=== PATIENT | male | born 1975 | race African-American/Black ===

== ENCOUNTER 2017-10-02 08:03 | Observation (INO) ==
[2017-10-02] MEDS: NITROGLYCERIN 0.4 MG SL TAB (BOTTLE OF 3) SL PRN ×2 (08:16→08:27)
[2017-10-02] MEDS ORDERED: ASPIRIN 81 MG (BABY) CHEWABLE TABLET PO ONE (08:19)
[2017-10-02] MEDS ORDERED: Sodium Chloride 0.9% 1,000 ML PRIMARY IV ONE (08:19)
--- NOTE | 2017-10-02 08:19 | PDOC ---
Chest Pain HPI - General Chief Complaint: Chest Pain Stated Complaint: CHEST PAIN Date Seen by Provider: 10/02/17 Time Seen by Provider: 08:14 Source: Patient Exam Limitations: POSITIVE: No limitations Treatment Prior to Arrival: REPORTS: None Nurse's Notes Reviewed & Considered: Yes - History of Present Illness Initial Comments: This is a 42-year-old male who presents to the emergency department with history of acute onset of left substernal chest pain which began approximately an hour or so prior to arrival. No associated nausea or vomiting, no shortness of breath, no diaphoresis. He describes this as a burning pain does radiate somewhat towards his left shoulder. He says he has had episodes like this before, but not this intense. No fevers, chills, or bodyaches. No congestion, runny nose, or cough. He takes clonidine on intermittent basis, and has no specific primary care provider. - Patient Home Medications Home Medications: Home Medications Clonidine HCl 0.1 mg PO DAILY 10/02/17 Amlodipine Besylate [Norvasc] 10 mg PO DAILY #30 tab 10/03/17 - Patient Allergies Allergies/Adverse Reactions: Allergies 3 Allergy/AdvReac Type Severity Reaction Status Date / Time No Known Allergies Allergy Verified 10/03/17 06:22 Past Medical History Cardiovascular History: Hypertension Tobacco Use: Current Every Day Smoker ROS - Limitations ROS Limitations: No Limitations Constitution: DENIES: Chills, Fever Cardiovascular: REPORTS: Chest Pain. DENIES: Heart Palpitations Respiratory: DENIES: Shortness Of Breath Neurological: DENIES: Dizziness Gastrointestinal: DENIES: Abdominal Pain, Nausea, Vomitting Musculoskeletal: DENIES: Lower Extremity Swelling, Muscle Aches Genitourinary: REPORTS: Denies Symptoms ENT: DENIES: Congestion, Nasal Drainage Chest Pain PE - General Appearance General Appearance: REPORTS: Alert, Cooperative, Mild Distress - HEENT HEENT: POSITIVE: EOMI. NEGATIVE: Scleral Icterus - Respiratory Respiratory: REPORTS: No Respiratory Distress, Breath Sounds Normal, Chest Non- Tender - Cardiovascular Cardiovascular: REPORTS: Regular Rate and Rhythm, Heart Sounds Normal, No Murmur , No Gallop, No Friction Rub - Abdomen Additional Abdominal Details: Abdomen is soft, nontender, nondistended, no obvious organomegaly. - Skin Skin: REPORTS: Warm, Dry, No Rash - Extremities Additional Extremities Details: Trace edema bilaterally. - Neurological / Psychological Neurological: POSITIVE: Affect Apporpriate, Oriented X3 Chest Pain Progress - Results Reviewed by me CBC and BMP: 10/02/17 08:19 10/02/17 08:19 Lab Results:: Laboratory Results 3 10/02/17 10/02/17 10/02/17 02:25 08:19 08:19 WBC 8.10 RBC 5.77 Hgb 16.8 Hct 48.6 MCV 84.2 MCH 29.1 MCHC 34.6 RDW Std Deviation 42.9 RDW Coeff of Ari 13.9 Plt Count 236 MPV 10.1 Immature Gran % (Auto) 0.4 Neut % (Auto) 44.3 L Lymph % (Auto) 45.3 [place] % (Auto) 6.8 Eos % (Auto) 2.6 Baso % (Auto) 0.6 Immature Gran # (Auto) 0.03 Neut # (Auto) 3.59 Lymph # (Auto) 3.67 [place] # (Auto) 0.55 Eos # (Auto) 0.21 Baso # (Auto) 0.05 WBC Morphology Comment Normal morphology Plt Morphology Comment Normal morphology RBC Morph Comment Normal morphology PT 10.2 INR 0.96 D-Dimer 0.21 Sodium Potassium Chloride Carbon Dioxide Anion Gap BUN Creatinine Estimated GFR BUN/Creatinine Ratio Glucose Calculated Osmolality Calcium Total Bilirubin AST ALT Alkaline Phosphatase CK-MB (CK-2) Troponin I < 0.012 Total Protein Albumin Globulin Albumin/Globulin Ratio 3 10/02/17 10/02/17 08:19 08:19 WBC RBC Hgb Hct MCV MCH MCHC RDW Std Deviation RDW Coeff of Ari Plt Count MPV Immature Gran % (Auto) Neut % (Auto) Lymph % (Auto) [place] % (Auto) Eos % (Auto) Baso % (Auto) Immature Gran # (Auto) Neut # (Auto) Lymph # (Auto) [place] # (Auto) Eos # (Auto) Baso # (Auto) WBC Morphology Comment Plt Morphology Comment RBC Morph Comment PT INR D-Dimer Sodium 139 Potassium 3.9 Chloride 104 Carbon Dioxide 24 Anion Gap 11 BUN 12 Creatinine 1.1 Estimated GFR > 60 BUN/Creatinine Ratio 10.90 Glucose 88 Calculated Osmolality 286.0 Calcium 9.3 Total Bilirubin 0.8 AST 52 ALT 99 H Alkaline Phosphatase 101 CK-MB (CK-2) 1.00 Troponin I < 0.012 Total Protein 7.0 Albumin 4.1 Globulin 2.9 Albumin/Globulin Ratio 1.40 EKG Interpretation:: POSITIVE: Normal Sinus Rhythm, Normal Rate, Other ( Nonspecific T-wave flattening in his lateral leads) - Patient's Progress Pain Medication Addressed: POSITIVE: Yes Status: POSITIVE: Improved MDM / ED Course: Emergency room course: After initial evaluation, an IV was started, labs were drawn. He is given aspirin to chew and sublingual nitroglycerin which did help with his pain. He was initially started a nitro drip at 5 mics per minutes for both his chest pain as well as his blood pressure. At this point I'm going off shift, so I am handing patient off to Dr. Kitchen for follow-up on this his labs and subsequent disposition. Patient Care Time - Estimated PCT Patient Care Time (In Minutes): 15 Discharge Clinical Impression: Chest pain, Hypertension Condition: Stable
--- NOTE | 2017-10-02 08:23 | EKG ---
[address] [address] Measurements Intervals [place] Rate: 84 P: 40 WI: 132 QRS: -10 QRSD: 98 T: 5 QT: 374 QTc: 415 Interpretive Statements SINUS RHYTHM No previous ECG available for comparison Electronically Signed On 10-02-17 09:03:10 MDT by Gary Valdez [email or web address]
[2017-10-02 08:34] LABS: BASOPHILS # (AUTO) 0.05 10*3/UL; BASOPHILS % (AUTO) 0.6 % (0-1); EOSINOPHILS # (AUTO) 0.21 10*3/UL; EOSINOPHILS % (AUTO) 2.6 % (0-8); Hematocrit [HCT] 48.6 % (42.0-52.0); Hemoglobin [HGB] 16.8 g/dL (14.0-18.0); LYMPHOCYTES # (AUTO) 3.67 10*3/uL; MEAN CORPUSCULAR HEMOGLOBIN 29.1 PG (27-31); MEAN CORPUSCULAR HGB CONC 34.6 g/dL (33-37); MEAN CORPUSCULAR VOLUME 84.2 FL (80-90); MEAN PLATELET VOLUME 10.1 FL (7.4-12.2); MONOCYTES # (AUTO) 0.55 10*3/UL (0.3-0.8); MONOCYTES % (AUTO) 6.8 % (5-15); NEUTROPHILS # (AUTO) 3.59 10*3/UL; NEUTROPHILS % (AUTO) 44.3 % (50-80); RED BLOOD COUNT 5.77 10^6/uL (4.70-6.10)
[2017-10-02 08:38] LABS: PLATELET MORPHOLOGY COMMENT NORMAL MORPHOLOGY (NORM); RBC MORPHOLOGY COMMENT NORMAL MORPHOLOGY (NORM); WBC MORPHOLOGY COMMENT NORMAL MORPHOLOGY (NORM)
[2017-10-02 08:39] LABS: BLOOD UREA NITROGEN 12 mg/dL (7-22); SERUM ALBUMIN 4.1 g/dL (3.5-4.8)
[2017-10-02] MEDS ORDERED: Nitroglycerin Drip 25,000 MCG/250 ML BOTTLE IV SCH (08:45)
--- NOTE | 2017-10-02 08:47 | DI ---
EXAM: XR Chest, 1 View CLINICAL HISTORY: ITS.REASON Chest Pain Physician Notes: Tech Comments: TECHNIQUE: Frontal view of the chest. COMPARISON: No relevant prior studies available. FINDINGS: Lungs: Unremarkable. No consolidation. Pleural space: Unremarkable. No pneumothorax. Heart: Unremarkable. No cardiomegaly. Mediastinum: Unremarkable. Bones/joints: Unremarkable. Other findings: IMPRESSION: No radiographic evidence of acute parenchymal disease.
[2017-10-02] MEDS ORDERED: NITROGLYCERIN 0.4 MG SL TAB (BOTTLE OF 3) SL PRN (09:36)
[2017-10-02] MEDS ORDERED: CALCIUM CARBONATE 500 MG (TUMS) CHEWABLE TABLET PO PRN (09:36)
[2017-10-02] MEDS ORDERED: LIDOCAINE W/ SODIUM BICARB 0.5 ML SYR SUBD PRN (09:36)
[2017-10-02] MEDS ORDERED: ONDANSETRON 4 MG/2 ML VIAL IVP PRN (09:36)
--- NOTE | 2017-10-02 09:43 | PDOC ---
Transfer of Care - Care Accepted Time Care Transferred: 09:00 Report from Transferring Physician Received: Yes MDM / ED Course: The patient is a 42-year-old male who presented to the emergency department this morning with chest pain. He was initially evaluated per Dr. Wang. He states that approximately 7 AM this [place] had onset of burning mid chest pain which he rated a 9 out of 10. On initial evaluation the patient's EKG showed some mild flattening in the inferior leads of the T waves with no acute ST segment changes and normal sinus rhythm. His chest x-ray was normal. He was hypotensive on arrival with blood pressure in the 170s systolic. He was given aspirin as well as sublingual nitroglycerin. The nitroglycerin seemed to help his pain significantly and he was started on a nitro drip at 5 mics. Patient care was transferred to sd with labs still pending. On my initial assessment the patient stated that his pain was down to a 0-1 out of 10 and his blood pressure was significantly improved in the 120s over 80s. He does have a history of hypertension for which he normally takes clonidine. He had not taken any of his medication for several days. In addition he does smoke. He does have a family history of heart disease as well. Please refer to Dr. Lau note for details of his initial evaluation. Home Medications: Home Medications Clonidine HCl 0.1 mg PO DAILY 10/02/17 Allergies/Adverse Reactions: Allergies No Known Allergies Allergy (Unverified 10/02/17 08:08) Vital Signs Reviewed: Yes Nurse's Notes Reviewed & Considered: Yes - Pending Patient Care Items Pending Patient Care Items: POSITIVE: Labs - Expected Patient Outcome Expected Disposition: POSITIVE: Admit Observation - Re-Evaluation of Patient Disposition of Patient: POSITIVE: Admitted Counseled: POSITIVE: Patient, Family, RE: Lab Results, RE: Radiology Results, RE : DX, RE: Need for F/U Clinical Impression Documented: Yes - Results Reviewed Lab Results Reviewed by Me: Yes Lab Results: Laboratory Results 3 10/02/17 10/02/17 10/02/17 08:19 08:19 08:19 WBC 8.10 RBC 5.77 Hgb 16.8 Hct 48.6 MCV 84.2 MCH 29.1 MCHC 34.6 RDW Std Deviation 42.9 RDW Coeff of Ari 13.9 Plt Count 236 MPV 10.1 Immature Gran % (Auto) 0.4 Neut % (Auto) 44.3 L Lymph % (Auto) 45.3 [place] % (Auto) 6.8 Eos % (Auto) 2.6 Baso % (Auto) 0.6 Immature Gran # (Auto) 0.03 Neut # (Auto) 3.59 Lymph # (Auto) 3.67 [place] # (Auto) 0.55 Eos # (Auto) 0.21 Baso # (Auto) 0.05 WBC Morphology Comment Normal morphology Plt Morphology Comment Normal morphology RBC Morph Comment Normal morphology PT 10.2 INR 0.96 D-Dimer 0.21 Sodium 139 Potassium 3.9 Chloride 104 Carbon Dioxide 24 Anion Gap 11 BUN 12 Creatinine 1.1 Estimated GFR > 60 BUN/Creatinine Ratio 10.90 Glucose 88 Calculated Osmolality 286.0 Calcium 9.3 Total Bilirubin 0.8 AST 52 ALT 99 H Alkaline Phosphatase 101 CK-MB (CK-2) Troponin I Total Protein 7.0 Albumin 4.1 Globulin 2.9 Albumin/Globulin Ratio 1.40 3 10/02/17 08:19 WBC RBC Hgb Hct MCV MCH MCHC RDW Std Deviation RDW Coeff of Ari Plt Count MPV Immature Gran % (Auto) Neut % (Auto) Lymph % (Auto) [place] % (Auto) Eos % (Auto) Baso % (Auto) Immature Gran # (Auto) Neut # (Auto) Lymph # (Auto) [place] # (Auto) Eos # (Auto) Baso # (Auto) WBC Morphology Comment Plt Morphology Comment RBC Morph Comment PT INR D-Dimer Sodium Potassium Chloride Carbon Dioxide Anion Gap BUN Creatinine Estimated GFR BUN/Creatinine Ratio Glucose Calculated Osmolality Calcium Total Bilirubin AST ALT Alkaline Phosphatase CK-MB (CK-2) 1.00 Troponin I < 0.012 Total Protein Albumin Globulin Albumin/Globulin Ratio EKG Interpreted/Reviewed By Me:: Yes EKG Interpretation:: POSITIVE: Normal Sinus Rhythm, Normal Rate, Normal QRS, Normal ST/T, Other (no acute ST segment elevation or depression, some flattening of the T waves in the inferior leads with T-wave inversion in lead 3 , no previous EKGs available) - Consult Recommendations:: Current findings were discussed with the patient. His initial workup is all reassuring. His pain improved significantly after administration of nitroglycerin and with reduction of his blood pressure. The patient does have several risk factors for heart disease including family history, smoking and hypertension. I did recommend that the patient be admitted for further cardiac monitoring and workup. After some discussion the patient did agree to do this. Dr. Raymond has agreed to accept the patient for admission. Patient Care Time - Estimated PCT Patient Care Time (In Minutes): 15 Vital Signs - Recent Vital Signs Vital Signs: Vital Signs (Last 8 hours) Temp Pulse Resp BP Pulse Ox 10/02/17 09:45 72 19 122/76 97 10/02/17 09:32 77 18 123/69 96 10/02/17 09:30 97.0 F 68 18 121/80 97 10/02/17 09:05 71 18 124/85 93 10/02/17 08:45 72 132/85 94 10/02/17 08:30 74 18 144/81 96 10/02/17 08:24 85 10/02/17 08:15 80 16 159/109 95 10/02/17 08:14 97.1 F 85 18 175/115 95 - VS Reviewed Vital Signs Reviewed: Yes Discharge Clinical Impression: Chest pain, Hypertension Discharge Disposition: Admit to Observation Condition: Stable
--- NOTE | 2017-10-02 13:10 | PDOC ---
HPI - History of Present Illness History of Present Illness: This very nice 42-year-old -[place] male who was seen in the emergency room this morning complaining of chest pain he is from [place] and it was here for work he said he admitted burning chest pain which she rated 9 out of 10 he has the no pain at present time and is resting in bed his girlfriend is in the bed with him and the daughter on the sofa. EKG revealed flattening of the T waves in the air inferiorly and high blood pressure in the 170s for which he takes clonidine for was started on nitro drip in the ER and his pain resolved in the ER after the nitro drip and he is not taking clonidine for several days other risk factors one pack of cigarettes a day no drug use Past Medical History Medical History: Hypertension Tobacco Use: Current Every Day Smoker In the Past 12 Months, Have Used or Abuse Any of the Following Substance: None Medication / Allergies Home Medications: Home Medications 3 Medication Instructions Recorded Confirmed Type Clonidine HCl 0.1 mg PO DAILY 10/02/17 10/02/17 History Allergies/Adverse Reactions: Allergies 3 Allergy/AdvReac Type Severity Reaction Status Date / Time No Known Allergies Allergy Unverified 10/02/17 08:08 Review of Systems - Review of Systems All Systems: Reviewed & No Additional Complaints Except as Stated - Respiratory Respiratory: DENIES: Negative System Review, Cough, Sputum, Dyspnea At Rest, Dyspnea with Exertion, Pleuritic Pain, Hemoptysis, Wheezing, Other, See HPI - Cardiovascular Cardiovascular: REPORTS: Chest Pain - Gastrointestinal Gastrointestinal / Abdominal: DENIES: Negative System Review, Nausea, Vomiting, Diarrhea, Constipation, Abdominal Pain, Bloody Stool, Poor Appetite, Heartburn, Regurgitation, Bloating, Lactose Intolerance, Melena, Bright Red Blood per Rectum, Other, See HPI - Neurological Neurologic: DENIES: Negative System Review, Headache, Numbness/Paresthesia, Tremors, Weakness, Seizures, Head Trauma, LOC, Dizziness, Confusion, Memory Loss , Difficulty Walking, Incoordination, Other, See HPI Exam - Vitals Vital Signs: Vital Signs Temperature 97.2 F Temperature Source Temporal Artery Scan Pulse Rate [Pulse Oximeter] 67 Respiratory Rate 16 Blood Pressure [Right Arm] 144/97 Pulse Ox 97 Oxygen Delivery Method Room Air Height 5 ft 7 in Weight 255 lb 1.6 oz - General General Appearance: No Acute Distress, Cooperative - Head Head Exam: Normal Inspection, Normocephalic, Atraumatic - Eye Eye Exam: POSITIVE: Normal Appearance, PERRL, EOMI, No Scleral Icterus - Respiratory Respiratory Exam: POSITIVE: Clear to Auscultation - Bilaterally, Breathing Non Labored, Normal To Percussion, Normal to Percussion and Palpation - Cardiovascular Cardiovascular Exam: POSITIVE: RRR, No Murmur, No Clicks, No Gallops, No Rubs, PMI Non-Displaced - GI/Abdominal GI/Abdominal Exam: POSITIVE: Normal Bowel Sounds, Non Tender, Non Distended, Soft, No Masses, No Hepatomegaly, No Splenomegaly, No Organomegaly - Extremities Extremities Exam: POSITIVE: No Clubbing Present, No Edema Present - Neurological Neurological Exam: POSITIVE: Alert, Oriented x 3, Normal Gait, No Facial Droop, Speech Intact / Clear, Moves All Extremities Equally Results - Labs CBC and BMP: 10/02/17 08:19 10/02/17 08:19 Assessment and Plan - Patient Problems (1) Chest pain Current Visit: Yes Status: Acute Comment: This is resolved with nitroglycerin drip I believe from hypertension first part of stress test will be done today and then the next part tomorrow morning if negative will discharge home if positive will refer to cardiology in [place] S patient's request he agrees and understands. Code(s): R07.9 - Chest pain, unspecified (2) Hypertension Current Visit: Yes Status: Acute Comment: I will start the patient on Norvasc 10 mg by thing this is a better drug for him. To control his blood pressure instead of clonidine Code(s): I10 - Essential (primary) hypertension
[2017-10-02] MEDS: NICOTINE 21 MG /DAY PATCH TRANSDERM SCH (20:38)
[2017-10-02] MEDS ORDERED: CloNIDine Tab 0.1 MG TABLET PO ONE (20:54)
[2017-10-03 03:20] LABS: CHOL/HDL RATIO 5.54 RATIO (0-4.0)
[2017-10-03 05:30] VITALS: RESP 20
[2017-10-03] MEDS ORDERED: CloNIDine Tab 0.1 MG TABLET PO SCH (09:00)
[2017-10-03] MEDS: NICOTINE 21 MG /DAY PATCH TRANSDERM SCH (10:13)
--- NOTE | 2017-10-03 11:05 | DCSUMMARY ---
Hospitalization Summary Hospital Course: Final Discharge Diagnosis: Current Visit Problems Problem Status Onset Code Chest pain Acute R07.9 Hypertension Acute I10 Diagnostic Data, Laboratory Data, and Procedures of Signifigance: Laboratory Results 10/02/17 10/02/17 10/02/17 Range/Units 02:25 14:19 20:23 D-Dimer (0.00-0.59) mg/L Troponin I < 0.012 < 0.012 0.013 (< 0.040) ng/mL Triglycerides (44-200) mg/dL Cholesterol (120-200) mg/dL LDL Cholesterol, Calc mg/dL VLDL Cholesterol (0-40) mg/dL HDL Cholesterol (40-150) mg/dL Cholesterol/HDL Ratio (0-4.0) RATIO TSH (0.2700-4.2000) uIU/mL Free T4 (0.93-1.71) ng/dL 10/03/17 10/03/17 10/03/17 Range/Units 02:25 02:25 02:25 D-Dimer 0.22 (0.00-0.59) mg/L Troponin I (< 0.040) ng/mL Triglycerides 185 (44-200) mg/dL Cholesterol 233 H (120-200) mg/dL LDL Cholesterol, Calc 154.000 mg/dL VLDL Cholesterol 37 (0-40) mg/dL HDL Cholesterol 42 (40-150) mg/dL Cholesterol/HDL Ratio 5.54 H (0-4.0) RATIO TSH 2.57 (0.2700-4.2000) uIU/mL Free T4 1.16 (0.93-1.71) ng/dL History and Physical pertinent to Admission: Course of Hospitalization: This very nice 42-year-old -[place] male comes in with elevated blood pressure and chest pain which resolved in the ER. He underwent Nancy exercise stress test this morning possible ST depression in lead 2 and recovery phase but very is too much artifact to interpret the other part of the test patient refused to do a normal Nancy scan and wanted to do the treadmill 1 I explained him the difference so because of his elevated blood pressure and was a better option to do not the treadmill he still refused and wanted to do the treadmill. She did quite well with no chest pain achieve the target heart rate. Blood pressure came down after 7 minutes of recovery to 160 range which is his normal baseline and heart rate and 100 beats per second range we will be we'll be awaiting the pictures . I just received a call from the radiologist dr ramirez he said the official transcript did report will be delayed because of computer issues but his reading and phone call was to tell me that the Nancy scan stress test was negative instructed the patient to follow-up with his primary care physician for hypertension monitoring in the [facility] and agrees and will follow- up in [place] where he lives On the date of discharge, the patient was examined: Gen.: No acute distress, alert, nontoxic Heart: Regular rate and rhythm, no murmurs, clicks, gallops, or rubs Lungs: Clear to auscultation bilaterally, breathing is nonlabored Abdomen/GI: Normal tones on auscultation, soft, nontender, nondistended Musculoskeletal/extremities: No clubbing, cyanosis, or edema Vitals reviewed and are listed below Vital Signs (24 hrs) Temp Pulse Pulse Pulse Resp BP Pulse Ox 10/03/17 09:00 97.1 F 73 20 163/111 95 10/03/17 07:00 60 96 10/03/17 05:15 97.6 F 72 20 164/104 96 10/03/17 03:00 62 97 10/03/17 00:59 98.6 F 59 L 16 125/74 96 10/02/17 23:00 68 10/02/17 20:40 97.6 F 61 17 162/98 97 10/02/17 19:00 67 97 10/02/17 18:47 75 10/02/17 16:19 97.2 F 74 18 160/89 95 10/02/17 12:29 97.2 F 67 16 144/97 97 Assessment and Plan: 1. As per discharge assessments above 2. Disposition: 3. Condition on discharge, stable and improved. 4. Diet: regular diet 5. Activities: resume normal activities 6. Follow-Up: 1. PCP 2. 7. Medications at the Time of Discharge: Home Medications 3 Medication Instructions Recorded Confirmed Type Clonidine HCl 0.1 mg PO DAILY 10/02/17 10/02/17 History Active Medications Generic Name Dose Route Start Last Admin Trade Name Freq PRN Reason Stop Dose Admin Amlodipine Besylate 10 mg 10/02/17 13:15 10/03/17 08:56 Norvasc PO Not Given DAILY MARLENE Calcium Carbonate 1 - 2 tab 10/02/17 09:36 Tums PO QID PRN Heartburn Sodium Chloride 25 mls @ 200 mls/hr 10/02/17 09:36 Normal Saline 0.9% IV .Post Infusion PRN Flush Lidocaine HCl 0.5 ml 10/02/17 09:36 Lidocaine Buffered Inj SUBD ONCE PRN IV Starts Nicotine 1 patch 10/02/17 20:30 10/03/17 10:13 Nicoderm Cq 21mg Patch TRANSDERM 1 patch DAILY MARLENE Administration Nitroglycerin 1 tab 10/02/17 09:36 Nitrostat Sl 0.4mg Tab SL Q5M PRN Chest Pain Ondansetron HCl 4 mg 10/02/17 09:36 Zofran Inj IVP Q4H PRN NAUSEA / VOMITING 8. Time, care, counseling and coordination of care for this discharge is greater than 30 minutes. Exam - Vitals Vital Signs: Vital Signs Temperature 97.1 F Temperature Source Temporal Artery Scan Pulse Rate [Apical] 75 Pulse Rate [Pulse Oximeter] 73 Pulse Rate 60 Respiratory Rate 20 Blood Pressure [Right Arm] 163/111 Pulse Ox 95 Oxygen Delivery Method Room Air Height 5 ft 7 in Weight 253 lb 1.6 oz Patient Problems - Patient Problem List (1) Chest pain Current Visit: Yes Status: Acute Code(s): R07.9 - Chest pain, unspecified Category: Medical (2) Hypertension Current Visit: Yes Status: Acute Code(s): I10 - Essential (primary) hypertension Category: Medical
--- NOTE | 2017-10-03 11:48 | STRESSTEST ---
[facility] [place] Interpretive Statements pt refused neil and wanted to to exercise neil . no chest pain during procedure. heavy artifact during exercise. in recpvery 7 minutes bp went dpwn.poss st depression inn lead 2. but to much artifact pt recovered nicely without any cardiac symptoms will await pictures [email or web address]
[2017-10-03 11:54] VITALS: BP 182/108; TEMP 97; O2SAT 94
[2017-10-03 13:32] LABS: AMPHETAMINE SCREEN NEGATIVE (NEG); CANNABINOID SCREEN,URINE NEGATIVE (NEG); COCAINE SCREEN NEGATIVE (NEG); METHADONE URINE SCREEN NEGATIVE (NEG); METHAMPHETAMINES SCREEN,URINE NEGATIVE (NEG); OPIATE SCREEN,URINE NEGATIVE (NEG); URINE SPECIFIC GRAVITY - MAN 1.012
--- NOTE | 2017-10-03 23:57 | DI ---
2 DAY YOVANNY STRESS & REST MYOCARDIAL PERFUSION SCANS, 10/02/2017 9:36 AM : Clinical History: Chest pain Previous Exam: None at this facility. The patient was stressed by Dr. Emmanuel Lugo The standard Yovanny protocol was used. Please see the Doctor's report. At the designated time, 37.7 mC i of 99Tc-sestimibi was injected IV. Stress gated tomograms were acquired within one hour of the inje ction. For the resting scans, 37.9 mCi was injected IV and resting gated tomograms were acquired in similar fashion. Stress scans were performed on October 02, 2017; the resting scans were performed on October 03, 2017. Quantitative and qualitative analyses were performed. Quantitative analysis was performed with the [place] [facility] [id number] protocols. Very low dose limited CT scans of the chest are o btained through the level of the heart for attenuation correction of the gated stress and rest cardia c SPECT data. Non-attenuated and attenuated scans were processed for review, and the attenuated scans were used for final interpretation of this study. Review of the raw data images and quality assurance associate files indicate that these series of examinations ar e of excellent quality. Stress and rest left ventricular chamber sizes are normal. Stress and rest LV EF are 46 % and 66 %, respectively. Transient ischemic dilatation ratio is 1.15, with a normal range up to 1.22 for patients stressed with the Yovanny protocol and up to 1.33 for patients stressed with the Lexiscan protocol. The very low dose CT scans through the level of the heart show no coronary artery calcifications. The re is no adenopathy or evidence of lung nodules. Reading: Normal Yovanny protocol stress test. There is normal wall motion and normal ejection fraction. No evidence of ischemia.
== END 2017-10-03 14:45 | disposition home or self-care (01) ==
LOC: ER 08:03 → MED/SURG 08:03
PROVIDERS: ADMIT Family Medicine; ATTEND Family Medicine